=== PATIENT | female | born 1970 | race African-American/Black ===

== ENCOUNTER → 2016-12-28 | Outpatient (CLI) | payer OTHER ==
[~2016-12-28] MED LIST: ANTIVERT 25MG25 MG PO; AZITHROMYC200 MG/5 M PO; BENADRYL25 M2; CARAFATE 1GM1 G PO; CARAFATE S1 GM/10 ML PO; CEFDINIR250 MG/5 M PO; D3-5050000 IU PO; DIFLUCAN 100MG100 MG PO; DOXYCYCLINE 10100 MG PO; FLEXERIL 1010 MG/TAB PO; LEVAQUIN 5500 MG/TA1 PO; LOPRESSOR 225 MG/TAB PO; MAGIC MOUTHWASH1 M1 PO; NASAL SPRAY 3030 M1 NAS; NEOMYCIN; NEXIUM 20MG20 MG PO; NORCO 325 MG-51 TAB PO; PHENERGAN 25 TA25 MG PO; PREDNISONE20 MG PO; PROTONIX 40MG T40 MG PO; PROTONIX20 MG PO; SUDAFED CH15 MG/5 ML PO; TOPROL XL 25MG25 MG PO; TUMS500 MG; TYLENOL 500MG500 MG PO; VITAMIN D2000 I1 PO; XANAX 1MG1 MG PO; XOPENEX HF0.045 MG/A IH; ZANTAC 7575 MG PO; ZEBETA 5MG5 MG PO; ZYRTEC 10MG10 MG PO
== END ==
LOC: COL.RAD 12-21 15:00
DX: J32.8 Other chronic sinusitis (principal); Z98.890 Other specified postprocedural states

== ENCOUNTER → 2017-03-19 | Outpatient (CLI) | payer OTHER | LOC: COL.RAD 07:18 | DX: M51.26 Other intervertebral disc displacement, lumbar region (principal) ==

== ENCOUNTER 2017-05-17 08:00 | Outpatient (RCR) | payer OTHER ==
[~2017-05-17 08:00] MED LIST changes: -D3-5050000 IU PO; -TOPROL XL 25MG25 MG PO; -ZANTAC 7575 MG PO
== END 2017-06-04 12:41 | disposition home or self-care (01) ==
LOC: WSPT 08:00
DX: R07.89 Other chest pain (principal); M25.512 Pain in left shoulder; G89.29 Other chronic pain

== ENCOUNTER → 2017-06-07 | Outpatient (CLI) | payer OTHER ==
[~2017-06-07] MED LIST changes: +D3-5050000 IU PO; +TOPROL XL 25MG25 MG PO; +ZANTAC 7575 MG PO
== END ==
LOC: COL.RAD 05-31 08:15
DX: S43.432A Superior glenoid labrum lesion of left shoulder, initial encounter (principal); M75.82 Other shoulder lesions, left shoulder; G89.29 Other chronic pain

== ENCOUNTER 2017-06-21 23:34 | Emergency (ER) | payer OTHER ==
[~2017-06-21] VITALS: Ht 177.8 cm; Wt 77.5 kg
[~2017-06-21 23:34] MED LIST changes: -D3-5050000 IU PO; -TOPROL XL 25MG25 MG PO; -ZANTAC 7575 MG PO
[2017-06-21 23:40] VITALS: TEMP 100.2
[2017-06-22 00:25] LABS: BASO % 0.4 % (0.0-2.0); EOS # 0.1 (0.0-0.7); EOS % 0.6 % (0-4.0); GRAN # 8.1 (1.4-6.5); GRAN % 81.8 % (42.2-75.2); LYMPH % 9.8 % (20.0-51.0); MEAN CELL VOLUME 82 fl (80.0-100.0); MEAN CORPUSCULAR HEMOGLOBIN 27 pg (27.0-31.0); MEAN CORPUSCULAR HGB CONC 32 g/dl (33.0-37.0); MEAN PLATELET VOLUME 10.4 fl (7.4-10.4); MONO # 0.7 (0.1-0.6); MONO % 7.2 % (1.7-9.3); PLATELET COUNT 188 K/mm3 (130-400); RED BLOOD COUNT 4.52 M/mm3 (4.10-5.30); REDCELL DISTRIBUTION WIDTH-CV 14.2 % (11.5-14.5); WHITE BLOOD COUNT 9.9 K/mm3 (4.8-10.8)
[2017-06-22 00:37] LABS: PH 8 (5-8); SQUAMOUS EPITHELIAL 0-2 /hpf; URINE APPEARANCE Cloudy; URINE BACTERIA Rare /hpf; URINE BILIRUBIN Negative (NEGATIVE); URINE BLOOD Negative (NEGATIVE); URINE COLOR Yellow; URINE GLUCOSE Negative (NEGATIVE); URINE KETONE Negative (NEGATIVE); URINE RBC 0-2 /hpf; URINE UROBILINOGEN Negative (NEGATIVE); URINE WBC 0-2 /hpf
[2017-06-22 00:38] LABS: ADJUSTED CALCIUM 9.1 mg/dL (8.4-10.2); ALANINE AMINOTRANSFERASE 20 U/L (9-52); ALKALINE PHOSPHATASE 80 U/L (50-136); ANION GAP 11 mmol/L (7-16); BILIRUBIN,TOTAL 0.6 mg/dL (0.0-1.0); BLOOD UREA NITROGEN 9 mg/dL (7-17); C-REACTIVE PROTEIN < 0.5 mg/dL (0.0-0.9); CALCIUM 9.1 mg/dL (8.4-10.2); CARBON DIOXIDE 28 mmol/L (22-30); CHLORIDE 103 mmol/L (98-107); CREATININE, serum 0.88 mg/dL (0.52-1.25); GLUCOSE 113 mg/dL (74-106); LIPASE 76 U/L (23-300); POTASSIUM 3.4 mmol/L (3.4-5.0); SODIUM 142 mmol/L (137-145); TOTAL PROTEIN 7.2 gm/dL (6.4-8.2)
[2017-06-22 00:49] LABS: INFLUENZA B NEGATIVE
[2017-06-22] MEDS ORDERED: TOPROL XL 25MG25 MG PO (00:49)
[2017-06-22] MEDS ORDERED: D3-5050000 IU PO (00:51)
[2017-06-22] MEDS ORDERED: ZANTAC 7575 MG PO ×2 (00:51→00:52)
[2017-06-22 02:03] VITALS: BP 138/94; PULSE 116
== END 2017-06-22 02:03 | disposition home or self-care (01) ==
LOC: COL.ER 23:34
PROVIDERS: Family Medicine
DX: B34.9 Viral infection, unspecified (principal); R10.9 Unspecified abdominal pain; Z98.890 Other specified postprocedural states
CPT/HCPCS: J2550; J7030

== ENCOUNTER 2017-08-25 22:42 | Emergency (ER) | payer OTHER ==
[~2017-08-25] VITALS: Ht 157.5 cm; Wt 76.4 kg
[~2017-08-25 22:42] MED LIST changes: +D3-5050000 IU PO; +TOPROL XL 25MG25 MG PO; +ZANTAC 7575 MG PO
[2017-08-25 23:03] VITALS: TEMP 97
[2017-08-26 02:30] VITALS: BP 157/100; PULSE 68
== END 2017-08-26 02:31 | disposition home or self-care (01) ==
LOC: COL.ER 22:42
DX: G43.909 Migraine, unspecified, not intractable, without status migrainosus (principal); I10 Essential (primary) hypertension; Z90.49 Acquired absence of other specified parts of digestive tract; Z90.710 Acquired absence of both cervix and uterus
CPT/HCPCS: J1170; J1200; J1885; J2550

== ENCOUNTER 2018-06-25 22:45 | Emergency (ER) | payer OTHER ==
[~2018-06-25] VITALS: Ht 157.5 cm; Wt 80.9 kg
[~2018-06-25 22:45] MED LIST changes: -D3-5050000 IU PO; +VITAMIND3 5000 PO; +ZEBETA10 MG PO
[2018-06-25 22:47] VITALS: TEMP 98.8
[2018-06-25 23:41] LABS: COLLECTION METHOD CLEAN CATCH
[2018-06-25 23:46] LABS: PH 7 (5-8); SQUAMOUS EPITHELIAL 0-2 /hpf; URINE APPEARANCE Clear; URINE BACTERIA None Seen /hpf; URINE BILIRUBIN Negative (NEGATIVE); URINE BLOOD Negative (NEGATIVE); URINE COLOR Straw; URINE GLUCOSE Negative (NEGATIVE); URINE KETONE Negative (NEGATIVE); URINE LEUKOCYTE ESTERASE Negative (NEGATIVE); URINE NITRATE Negative (NEGATIVE); URINE PROTEIN(semi-quant) Negative (NEGATIVE); URINE RBC 0-2 /hpf; URINE UROBILINOGEN Negative (NEGATIVE)
[2018-06-26] MEDS ORDERED: HCTZ 25MG TAB25 MG PO (00:10)
[2018-06-26] MEDS ORDERED: MULTI VITAMINS1 TAB PO (00:18)
[2018-06-26] MEDS ORDERED: PEPCID 20MG TAB20 MG PO (00:19)
[2018-06-26] MEDS ORDERED: HCTZ12.5TAB PO (00:38)
[2018-06-26 00:47] VITALS: BP 158/109; PULSE 70
== END 2018-06-26 00:48 | disposition home or self-care (01) ==
LOC: COL.ER 22:45
PROVIDERS: Emergency Medicine
DX: I10 Essential (primary) hypertension (principal)

== ENCOUNTER 2018-10-06 22:32 | Emergency (ER) | payer OTHER ==
[~2018-10-06] VITALS: Ht 157.5 cm; Wt 76.8 kg
[~2018-10-06 22:32] MED LIST changes: +HCTZ 25MG TAB25 MG PO; +HCTZ12.5TAB PO; +MULTI VITAMINS1 TAB PO; +PEPCID 20MG TAB20 MG PO
[2018-10-06 23:15] LABS: BASO % 0.2 % (0.0-2.0); EOS # 0.1 (0.0-0.7); EOS % 0.5 % (0-4.0); GRAN # 8.1 (1.4-6.5); GRAN % 87.7 % (42.2-75.2); HEMATOCRIT 43.7 % (37.0-47.0); HEMOGLOBIN 14.1 g/dl (12.5-16.0); LYMPH # 0.5 (1.2-3.4); LYMPH % 5.4 % (20.0-51.0); MEAN CELL VOLUME 82 fl (80.0-100.0); MEAN CORPUSCULAR HEMOGLOBIN 27 pg (27.0-31.0); MEAN CORPUSCULAR HGB CONC 32 g/dl (33.0-37.0); MEAN PLATELET VOLUME 10.4 fl (7.4-10.4); MONO # 0.6 (0.1-0.6); MONO % 6.1 % (1.7-9.3); PLATELET COUNT 215 K/mm3 (130-400); RED BLOOD COUNT 5.33 M/mm3 (4.10-5.30)
[2018-10-06 23:28] LABS: ALBUMIN 4.5 gm/dL (3.5-5.0); BILIRUBIN,TOTAL 0.4 mg/dL (0.0-1.0); CALCIUM 9.6 mg/dL (8.4-10.2); CREATININE, serum 0.98 mg/dL (0.52-1.25); POTASSIUM 4.4 mmol/L (3.4-5.0); TOTAL PROTEIN 8.4 gm/dL (6.4-8.2)
[2018-10-06 23:29] LABS: C-REACTIVE PROTEIN 0.5 mg/dL (0.0-0.9)
[2018-10-07 00:39] LABS: COLLECTION METHOD CLEAN CATCH
[2018-10-07 00:45] LABS: PH 7 (5-8); SQUAMOUS EPITHELIAL 0-2 /hpf; URINE APPEARANCE Clear; URINE BACTERIA Rare /hpf; URINE BILIRUBIN Negative (NEGATIVE); URINE BLOOD Negative (NEGATIVE); URINE COLOR Yellow; URINE GLUCOSE Negative (NEGATIVE); URINE KETONE Negative (NEGATIVE); URINE LEUKOCYTE ESTERASE Negative (NEGATIVE); URINE NITRATE Negative (NEGATIVE); URINE PROTEIN(semi-quant) Negative (NEGATIVE); URINE RBC 0-2 /hpf; URINE UROBILINOGEN Negative (NEGATIVE)
[2018-10-07 02:51] VITALS: BP 140/97; PULSE 122; TEMP 101
== END 2018-10-07 02:55 | disposition home or self-care (01) ==
LOC: COL.ER 22:32
PROVIDERS: Nurse Practitioner
DX: K52.9 Noninfective gastroenteritis and colitis, unspecified (principal); I10 Essential (primary) hypertension; Z90.49 Acquired absence of other specified parts of digestive tract
CPT/HCPCS: J2550; J7030; Q9967

== ENCOUNTER → 2018-10-17 | Outpatient (CLI) | payer OTHER | LOC: COL.RAD 13:16 | DX: I31.3 Pericardial effusion (noninflammatory) (principal); R59.0 Localized enlarged lymph nodes; Z90.89 Acquired absence of other organs | CPT/HCPCS: Q9967 ==

== ENCOUNTER → 2019-03-25 | Outpatient (CLI) | payer OTHER | LOC: COL.RAD 07:30 | DX: G43.709 Chronic migraine without aura, not intractable, without status migrainosus (principal) ==

== ENCOUNTER 2020-01-14 21:40 | Emergency (ER) | payer OTHER ==
[~2020-01-14] VITALS: Ht 157.5 cm; Wt 80.9 kg
[2020-01-14 21:45] VITALS: TEMP 97.9
[2020-01-14] MEDS ORDERED: INDERAL 20MG20 MG PO (21:46)
[2020-01-14] MEDS ORDERED: SEPTRA SUS200/5-40/5 PO (22:37)
[2020-01-14 22:53] VITALS: BP 179/114; PULSE 82
== END 2020-01-14 22:53 | disposition home or self-care (01) ==
LOC: COL.ER 21:40
DX: L91.0 Hypertrophic scar (principal); I10 Essential (primary) hypertension; F41.9 Anxiety disorder, unspecified; Z79.899 Other long term (current) drug therapy

== ENCOUNTER → 2020-05-25 | Outpatient (CLI) | payer OTHER ==
[~2020-05-25] MED LIST changes: +INDERAL 20MG20 MG PO; +SEPTRA SUS200/5-40/5 PO
== END ==
LOC: COL.RAD 05-23 11:30
DX: K83.8 Other specified diseases of biliary tract (principal); K44.9 Diaphragmatic hernia without obstruction or gangrene
CPT/HCPCS: Q9967

== ENCOUNTER 2020-08-02 10:15 | Emergency (ER) | payer OTHER ==
[~2020-08-02] VITALS: Ht 157.5 cm; Wt 79.5 kg
[2020-08-02 10:22] VITALS: TEMP 98.3
[2020-08-02 11:15] LABS: ALANINE AMINOTRANSFERASE 18 U/L (4-34); ALBUMIN 4.4 gm/dL (3.5-5.0); ALKALINE PHOSPHATASE 92 U/L (50-136); ANION GAP 8 mmol/L (7-16); AST,SGOT 42 U/L (15-37); BILIRUBIN,TOTAL 0.6 mg/dL (0.0-1.0); BLOOD UREA NITROGEN 11 mg/dL (7-17); CALCIUM 9.3 mg/dL (8.4-10.2); CARBON DIOXIDE 29 mmol/L (22-30); CHLORIDE 106 mmol/L (98-107); CREATININE, serum 0.93 (0.52-1.25); GLUCOSE 95 mg/dL (74-106); POTASSIUM 3.9 mmol/L (3.4-5.0); SODIUM 143 mmol/L (137-145); TOTAL PROTEIN 7.7 gm/dL (6.4-8.2)
[2020-08-02 11:16] LABS: BASO # 0.1 (0.0-0.2); BASO % 1.1 % (0.0-2.0); EOS # 0.1 (0.0-0.7); EOS % 1.8 % (0-4.0); GRAN # 2.5 (1.4-6.5); HEMATOCRIT 39.7 % (37.0-47.0); HEMOGLOBIN 12.4 g/dl (12.5-16.0); LYMPH # 1.5 (1.2-3.4); LYMPH % 32.6 % (20.0-51.0); MEAN CELL VOLUME 82 fl (80.0-100.0); MEAN CORPUSCULAR HEMOGLOBIN 26 pg (27.0-31.0); MEAN CORPUSCULAR HGB CONC 31 g/dl (33.0-37.0); MEAN PLATELET VOLUME 11.8 fl (7.4-10.4); MONO # 0.5 (0.1-0.6); MONO % 10.5 % (1.7-9.3); PLATELET COUNT 156 K/mm3 (130-400); RED BLOOD COUNT 4.82 M/mm3 (4.10-5.30); REDCELL DISTRIBUTION WIDTH-CV 14.6 % (11.5-14.5)
[2020-08-02 11:30] LABS: TROPONIN-I < 0.012 ng/mL (0.000-0.035)
[2020-08-02 13:57] VITALS: BP 162/108; PULSE 76
== END 2020-08-02 13:58 | disposition home or self-care (01) ==
LOC: COL.ER 10:15
PROVIDERS: Nurse Practitioner Primary Care
DX: R07.89 Other chest pain (principal); I10 Essential (primary) hypertension; K21.9 Gastro-esophageal reflux disease without esophagitis; Z90.49 Acquired absence of other specified parts of digestive tract; Z90.710 Acquired absence of both cervix and uterus; Z88.0 Allergy status to penicillin; Z88.1 Allergy status to other antibiotic agents; Z88.6 Allergy status to analgesic agent; Z88.8 Allergy status to other drugs, medicaments and biological substances; Z79.82 Long term (current) use of aspirin
CPT/HCPCS: Q9967

== ENCOUNTER → 2020-09-09 | Outpatient (CLI) | payer OTHER | LOC: COL.LAB 07:46 | DX: Z20.828 Contact with and (suspected) exposure to other viral communicable diseases (principal) ==

== ENCOUNTER → 2020-10-03 | Outpatient (CLI) | payer OTHER | LOC: ZCOL.LAB 12:17 | DX: Z20.828 Contact with and (suspected) exposure to other viral communicable diseases (principal) ==

== ENCOUNTER → 2020-10-14 | Outpatient (CLI) | payer OTHER | LOC: COL.LAB 07:23 | DX: Z20.828 Contact with and (suspected) exposure to other viral communicable diseases (principal) ==

== ENCOUNTER → 2024-07-13 | Outpatient (CLI) | payer OTHER ==
[~2024-07-13] MED LIST changes: +Gadoterate 20 ML VIAL IV ONE
== END ==
LOC: COL.RAD 09:40
DX: G43.719 Chronic migraine without aura, intractable, without status migrainosus (principal)
CPT/HCPCS: A9575